=== PATIENT | male | born 1970 | race Caucasian/White ===

== ENCOUNTER 2018-06-20 21:17 | Emergency (ER) | payer OTHER, BC ==
[2018-06-20] MEDS ORDERED: IBUPROFEN 600 MG TABLET PO ONE (23:27)
[2018-06-20] MEDS ORDERED: METHOCARBAMOL 750 MG TABLET PO ONE (23:28)
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
[2018-06-21 00:50] VITALS: BP 120/77
== END 2018-06-21 00:15 | disposition home or self-care (01) ==
LOC: ER 21:17
DX: M54.2 Cervicalgia (principal); M54.5 Low back pain; V87.7XXA Person injured in collision between other specified motor vehicles (traffic), initial encounter; F17.200 Nicotine dependence, unspecified, uncomplicated
CPT/HCPCS: 99283; J3490